=== PATIENT | male | born 1985 | race African-American/Black ===

== ENCOUNTER 2023-01-31 17:59 | Emergency (ER) | payer SELFPAY ==
[~2023-01-31] VITALS: Ht 180.3 cm; Wt 64.0 kg
[2023-01-31 18:09] VITALS: BP 174/122; O2SAT 99
[2023-01-31] MEDS ORDERED: IBUP-2029 MT (21:28)
[2023-01-31] MEDS ORDERED: AMOX-494 MT (21:28)
[2023-01-31] MEDS ORDERED: KETOROLAC 30MG/ML VIAL IM ONE (21:30)
[2023-01-31] MEDS ORDERED: AMOXICILLIN 500 MG CAPSULE PO ONE (21:30)
[2023-01-31 21:48] VITALS: TEMP 98.9
[2023-01-31 21:50] VITALS: PULSE 82; RESP 18
== END 2023-01-31 21:51 | disposition home or self-care (01) ==
LOC: ER 17:59
DX: K08.89 Other specified disorders of teeth and supporting structures (principal); I10 Essential (primary) hypertension
CPT/HCPCS: 96372; 99283; J1885; Z7610